=== PATIENT | male | born 1970 | race Caucasian/White ===

== ENCOUNTER → 2018-04-20 | Outpatient (CLI) | payer BC, OTHER ==
--- NOTE | 2018-04-20 15:35 | Diagnostic Imaging Report ---
INDICATION: Low back pain radiating to the right leg. TIME OF EXAM: 3:08 p.m. FINDINGS: Three views of the lumbar spine show normal curvature and alignment. Vertebral body heights are maintained. No acute compression fracture is seen. Multilevel degenerative disc disease is seen with variable disc space narrowing and marginal spurring. IMPRESSION: Lumbar spondylosis. No acute bony abnormality is detected. Dictated by: Dictated on workstation # [id number]
--- NOTE | 2018-04-20 15:37 | Diagnostic Imaging Report ---
INDICATION: Low back pain. TIME OF EXAM: 03:10 p.m. FINDINGS: Multiple views of the pelvis and bilateral hips were obtained. Femoroacetabular alignment is normal bilaterally. The joint spaces are well maintained. Both femoral heads and necks appear to be intact. No fractures are seen. The rami are intact. SI joints and symphyses are non-widened. IMPRESSION: No acute bony abnormality is detected. Dictated by: Dictated on workstation # [id number]
== END ==
LOC: RAD 14:09
PROVIDERS: ATTEND Chiropractor
DX: M47.816 Spondylosis without myelopathy or radiculopathy, lumbar region (principal)
CPT/HCPCS: 72100; 73523

== ENCOUNTER 2021-05-06 04:51 | Emergency (ER) | payer OTHER ==
[~2021-05-06] VITALS: Ht 180 cm; Wt 104.0 kg
--- NOTE | 2021-05-06 05:13 | ED Back Pain ---
General Chief Complaint: Abdominal/GI Problems Stated Complaint: LEFT SIDE PX,POSS KIDNEY STONES Source of Information: Patient Exam Limitations: No Limitations History of Present Illness Date Seen by Provider: May 06, 2021 Time Seen by Provider: 04:58 Initial Comments Patient to the ER by private conveyance with his significant other chief complaint that yesterday he started having some left lower flank and back pain radiating around to his left groin. He says it is consistent with his 3 previous kidney stones they are all on the right side. He said to have lithotripsy and retrieval. Dr. Hernandez, urology at [place], [place] is his urologist. He does not follow with a primary care doctor. He did take some ibuprofen just before coming in. No blood or painful urination. He had nausea yesterday but none today. He went to the ER at [facility] and and after 3 or 4 hours his symptoms were improving so he went home. Allergies and Home Medications Allergies Coded Allergies: Penicillins (Unverified Allergy, Unknown, hives, 05/06/21) Patient Home Medication List Home Medication List Reviewed: Yes Cephalexin (Cephalexin) 500 Mg Tablet, 500 MG PO BID Prescribed by: LAYA AMATO on 05/06/21 0544 Hydrocodone/Acetaminophen (Hydrocodone-Acetamin 5-325 mg) 1 Each Tablet, 1-2 TAB PO Q6H PRN for PAIN-MODERATE (5-7) Prescribed by: LAYA AMATO on 05/06/21 0545 Ondansetron (Ondansetron Odt) 4 Mg Tab.rapdis, 4 MG PO Q6H PRN for NAUSEA/VOMITING Prescribed by: LAYA AMATO on 05/06/21 0544 Tamsulosin HCl (Flomax) 0.4 Mg Cap, 0.4 MG PO DAILY Prescribed by: LAYA AMATO on 05/06/21 0544 Review of Systems Constitutional: No chills, No diaphoresis EENTM: No ear discharge, No hearing loss Respiratory: No cough, No short of breath Cardiovascular: no symptoms reported Gastrointestinal: see HPI Genitourinary: see HPI Musculoskeletal: see HPI, back pain All Other Systems Reviewed Negative Unless Noted: Yes Past Inzeepa-Pouzkw-Pjujwh Hx Patient Social History Tobacco Use?: No Use of E-Cig and/or Vaping dev: No Substance use?: No Physical Exam Vital Signs Vital Signs - First Documented 05/06/21 05:07 Temp 36.0 Pulse 79 Resp 16 B/P (MAP) 177/122 (140) Pulse Ox 99 O2 Delivery Room Air Capillary Refill : Height, Weight, BMI Height: '" Weight: lbs. oz. kg; BMI Method: General Appearance: WD/WN, Moderate Distress HEENT: PERRL/EOMI, Moist Mucous Membranes Neck: Full Range of Motion, Normal Inspection Cardiovascular: Regular Rate, Rhythm, No Edema, Normal Peripheral Pulses Respiratory: No Accessory Muscle Use, No Respiratory Distress Gastrointestinal: Non Tender, Soft Back: Normal Inspection, CVA Tenderness (L) Neurologic/Psychiatric: Alert, Oriented x3 Progress/Results/Core Measures Results/Orders Lab Results Laboratory Tests Test 05/06/21 05:10 Range/Units Urine Color YELLOW Urine Clarity SL CLOUDY Urine pH 5.5 5-9 Urine Specific [place] >=1.030 1.016-1.022 Urine Protein TRACE H NEGATIVE Urine Glucose (UA) NEGATIVE NEGATIVE Urine Ketones NEGATIVE NEGATIVE Urine Nitrite NEGATIVE NEGATIVE Urine Bilirubin NEGATIVE NEGATIVE Urine Urobilinogen 0.2 < = 1.0 MG/DL Urine Leukocyte Esterase NEGATIVE NEGATIVE Urine RBC (Auto) 3+ H NEGATIVE Urine RBC 50-100 H /HPF Urine WBC 2-5 /HPF Urine Squamous Epithelial Cells 0-2 /HPF Urine Crystals NONE /LPF Urine Bacteria TRACE /HPF Urine Casts NONE /LPF Urine Mucus NEGATIVE /LPF Urine Culture Indicated NO My Orders Orders - LAYA AMATO Ua Culture If Indicated (05/06/21 04:59) Ketorolac Injection (Toradol Injection) (05/06/21 05:15) Ct Abd/Pelvis Wo(Kidney Stone) (05/06/21 05:06) Abdomen/Kub 1view (05/06/21 05:06) Rx-Hydrocodone/Apap 5-325 Mg (Rx-Vicodin (05/06/21 05:45) Medications Given in ED Current Medications Medications Dose Ordered Sig/Bryant Route Start Time Stop Time Status Last Admin Dose Admin Acetaminophen/ Hydrocodone Bitart 1 ea Q6H PRN PO 05/06/21 05:45 05/06/21 05:47 1 EA Ketorolac Tromethamine 60 mg ONCE ONCE IM 05/06/21 05:15 05/06/21 05:16 DC 05/06/21 05:16 60 MG Vital Signs/I&O 05/06/21 05:07 Temp 36.0 Pulse 79 Resp 16 B/P (MAP) 177/122 (140) Pulse Ox 99 O2 Delivery Room Air Progress Progress Note : Time: 05:13 Progress Note Toradol, CT and urinalysis 1 view plain film. Diagnostic Imaging Diagonstic Imaging: Xray Plain Films/CT/US/NM/MRI: abdomen Comments NAME: BLAYNE MAHAJAN MED REC#: [id number] PT STATUS: REG ER : 1970 PHYSICIAN: LAYA AMATO MD ADMIT DATE: 05/06/21/ER Draft Date of Exam:05/06/21 ABDOMEN/KUB 1VIEW INDICATION: Left flank pain and hematuria. History of stones. Cholecystectomy. EXAMINATION: Abdomen 05/06/2021 FINDINGS: Two views of the abdomen. There are clips in the right upper quadrant consistent with previous cholecystectomy. There is no free air. There is scattered air and stool throughout the colon to the rectosigmoid. No dilated loops of bowel. There is a hyperdensity in the left mid abdomen adjacent to the L2-L3 level consistent with a stone seen in the proximal ureter on recent CT. IMPRESSION: 1. Small stone in the proximal left ureter as noted above. 2. Nonobstructive bowel gas pattern. Dictated on workstation # [id number] Dict: 05/06/21 0539 Trans: 05/06/21 0542 COUNTS INCLUDE 234 BEDS AT THE [facility] [id number] Interpreted by: SASHA STONER MD Electronically signed by: Reviewed: Reviewed by Tx Diagonstic Imaging: CT Plain Films/CT/US/NM/MRI: abdomen, pelvis Comments NAME: BLAYNE MAHAJAN MED REC#: [id number] PT STATUS: REG ER : 1970 PHYSICIAN: LAYA AMATO MD ADMIT DATE: 05/06/21/ER Draft Date of Exam:05/06/21 CT ABD/PELVIS WO(KIDNEY STONE) PROCEDURE: CT urinary tract, rule out kidney stone. TECHNIQUE: Multiple contiguous axial images were obtained through the abdomen and pelvis without the use of intravenous contrast. Auto Exposure Controls were utilized during the CT exam to meet ALARA standards for radiation dose reduction. INDICATION: Left flank pain and hematuria. History of stones. History of cholecystectomy. EXAMINATION: CT abdomen and pelvis without contrast 05/06/2021 FINDINGS: The visualized lung base is clear. The nonopacified abdominal viscera demonstrates no acute abnormalities within the liver or spleen. There is evidence of previous cholecystectomy. The pancreas and adrenal glands appear unremarkable. There is a small hypodensity within the superior pole of the left kidney somewhat small for characterization, likely a cyst. There is suggestion of punctate stones in the left kidney. There is a 2 to 3 mm stone in the proximal left ureter with secondary moderate left hydroureteronephrosis. There are no ureteral stones on the right. The appendix is unremarkable. There is no ascites or free air. There is no obstructive process. There are bilateral fat-containing inguinal hernias. There is no adenopathy. There is no acute osseous abnormality. IMPRESSION: 1. A 2 to 3 mm stone in the proximal left ureter with secondary moderate left hydroureteronephrosis. Punctate nonobstructive stones in left kidney also noted. Otherwise incidental findings as above. Dictated on workstation # [id number] Dict: 05/06/21 0526 Trans: 05/06/21 0533 COUNTS INCLUDE 234 BEDS AT THE [facility] [id number] Interpreted by: SASHA STONER MD Electronically signed by: Reviewed: Reviewed by Me Departure Impression Primary Impression: Ureteral calculus, left Disposition: 01 HOME, SELF-CARE Condition: Stable Departure-Patient Inst. Decision time for Depature: 05:45 Referrals: NO,LOCAL PHYSICIAN (PCP) Primary Care Physician BRENDA ELLER MD Patient Instructions: Kidney Stones (DC) Add. Discharge Instructions: Drink lots of fluids. Strain your urine to see if you can collect the stone. Symptoms usually tate 1 to 2 days after the stone is passed. Ibuprofen 800 mg every 8 hours necessary for pain. Hydrocodone 1-2 tablets every 6 hours as necessary for pain. Follow-up with urology by calling for an appointment in the morning. Zofran 1 tablet every 6 hours as necessary for nausea or vomiting. Keflex 1 capsule twice a day for urinary tract infection. Flomax 1 capsule every day until the stone passes. Return to the ER for intractable pain or other worrisome symptoms. All discharge instructions reviewed with patient and/or family. Voiced understanding. Scripts Cephalexin (Cephalexin) 500 Mg Tablet 500 MG PO BID for 7 Days, #14 TAB 0 Refills Prov: LAYA AMATO 05/06/21 Ondansetron (Ondansetron Odt) 4 Mg Tab.rapdis 4 MG PO Q6H PRN for NAUSEA/VOMITING, #8 TAB 0 Refills Prov: LAYA AMATO 05/06/21 Tamsulosin HCl (Flomax) 0.4 Mg Cap 0.4 MG PO DAILY for 7 Days, #7 CAP 0 Refills Prov: LAYA AMATO 05/06/21 Hydrocodone/Acetaminophen (Hydrocodone-Acetamin 5-325 mg) 1 Each Tablet 1-2 TAB PO Q6H PRN for PAIN-MODERATE (5-7) for 3 Days, #15 TAB 0 Refills Prov: LAYA AMATO 05/06/21 Copy Copies To 1: BRENDA ELLER MD, TITUS J May 06, 2021 05:13
[2021-05-06] MEDS ORDERED: KETOROLAC 60 MG/2 ML VIAL IM ONE (05:15)
[2021-05-06 05:18] LABS: BILIRUBIN,URINE NEGATIVE (NEGATIVE); CLARITY,URINE SL CLOUDY; COLOR,URINE YELLOW; GLUCOSE, URINE (UA) NEGATIVE (NEGATIVE); KETONES,URINE NEGATIVE (NEGATIVE); LEUKOCYTE ESTERASE ,URINE NEGATIVE (NEGATIVE); NITRITE,URINE NEGATIVE (NEGATIVE); PH,URINE 5.5 (5-9); PROTEIN,URINE TRACE (NEGATIVE)
--- NOTE | 2021-05-06 05:35 | Diagnostic Imaging Report ---
PROCEDURE: CT urinary tract, rule out kidney stone. TECHNIQUE: Multiple contiguous axial images were obtained through the abdomen and pelvis without the use of intravenous contrast. Auto Exposure Controls were utilized during the CT exam to meet ALARA standards for radiation dose reduction. INDICATION: Left flank pain and hematuria. History of stones. History of cholecystectomy. EXAMINATION: CT abdomen and pelvis without contrast 05/06/2021 FINDINGS: The visualized lung base is clear. The nonopacified abdominal viscera demonstrates no acute abnormalities within the liver or spleen. There is evidence of previous cholecystectomy. The pancreas and adrenal glands appear unremarkable. There is a small hypodensity within the superior pole of the left kidney somewhat small for characterization, likely a cyst. There is suggestion of punctate stones in the left kidney. There is a 2 to 3 mm stone in the proximal left ureter with secondary moderate left hydroureteronephrosis. There are no ureteral stones on the right. The appendix is unremarkable. There is no ascites or free air. There is no obstructive process. There are bilateral fat-containing inguinal hernias. There is no adenopathy. There is no acute osseous abnormality. IMPRESSION: 1. A 2 to 3 mm stone in the proximal left ureter with secondary moderate left hydroureteronephrosis. Punctate nonobstructive stones in left kidney also noted. Otherwise incidental findings as above. Dictated by: Dictated on workstation # [id number]
--- NOTE | 2021-05-06 05:43 | Diagnostic Imaging Report ---
INDICATION: Left flank pain and hematuria. History of stones. Cholecystectomy. EXAMINATION: Abdomen 05/06/2021 FINDINGS: Two views of the abdomen. There are clips in the right upper quadrant consistent with previous cholecystectomy. There is no free air. There is scattered air and stool throughout the colon to the rectosigmoid. No dilated loops of bowel. There is a hyperdensity in the left mid abdomen adjacent to the L2-L3 level consistent with a stone seen in the proximal ureter on recent CT. IMPRESSION: 1. Small stone in the proximal left ureter as noted above. 2. Nonobstructive bowel gas pattern. Dictated by: Dictated on workstation # [id number]
[2021-05-06] MEDS ORDERED: TMSL.4C PO (05:44)
[2021-05-06] MEDS ORDERED: CEPH500T PO (05:44)
[2021-05-06] MEDS ORDERED: ACHD5005 PO (05:44)
[2021-05-06] MEDS ORDERED: ONDA4TAB11 PO (05:44)
[2021-05-06 05:51] LABS: BACTERIA,URINE TRACE /HPF; RBC,URINE 50-100 /HPF; SQUAMOUS EPITHELIAL CELL,UR 0-2 /HPF
[2021-05-06 06:05] VITALS: BP 147/110
== END 2021-05-06 06:05 | disposition home or self-care (01) ==
LOC: EDUNIT# 04:51 → ER 04:56
DX: N13.2 Hydronephrosis with renal and ureteral calculous obstruction (principal)
CPT/HCPCS: 74018; 74176; 81000

== ENCOUNTER 2021-05-08 05:22 | Emergency (ER) | payer OTHER ==
[~2021-05-08 05:22] MED LIST: ACHD5005 PO; CEPH500T PO; ONDA4TAB11 PO; TMSL.4C PO
[2021-05-08 05:30] VITALS: BP 176/103
[2021-05-08 05:45] LABS: BASOPHILS % (AUTO) 1 % (0-10); EOSINOPHILS % (AUTO) 0 % (0-10); HEMATOCRIT 45 % (40-54); HEMOGLOBIN 14.8 g/dL (13.3-17.7); LYMPHOCYTES # (AUTO) 1.7 10^3/uL (1.0-4.0); LYMPHOCYTES % (AUTO) 19 % (12-44); MEAN CORPUSCULAR HEMOGLOBIN 29 pg (25-34); MEAN CORPUSCULAR HGB CONC 33 g/dL (32-36); MEAN CORPUSCULAR VOLUME 89 fL (80-99); MEAN PLATELET VOLUME 9.7 fL (9.0-12.2); MONOCYTES # (AUTO) 0.7 10^3/uL (0.0-1.0); MONOCYTES % (AUTO) 8 % (0-12); NEUTROPHILS # (AUTO) 6.2 10^3/uL (1.8-7.8); NEUTROPHILS % (AUTO) 72 % (42-75); PLATELET COUNT 247 10^3/uL (130-400); WHITE BLOOD COUNT 8.6 10^3/uL (4.3-11.0)
[2021-05-08] MEDS ORDERED: LACTATED RINGERS 1,000 ML IV ONE ×2 (05:45→06:30)
[2021-05-08] MEDS ORDERED: ONDANSETRON 4 MG/2 ML (SDV) Z0FRAN IVP ONE (05:45)
[2021-05-08] MEDS ORDERED: KETOROLAC 30 MG/ML VIAL IVP ONE (05:45)
--- NOTE | 2021-05-08 05:48 | ED GU-Male ---
General Chief Complaint: Abdominal/GI Problems Stated Complaint: KIDNEY PAIN Nursing Triage Note: patient complaint of left sided flank pain, states started monday. worsen over last two hours. hx of kidney stone. Source: patient History of Present Illness Date Seen by Provider: May 08, 2021 Time Seen by Provider: 05:45 Initial Comments PT ARRIVES VIA POV FROM HOME PT SEEN HERE ON Monday05/06/21 FOR LEFT KIDNEY STONE--2-3 MM IN SIZE PAIN BEGAN ON MONDAY PT WAS SENT HOME WITH RX'S FOR HYDROCODONE, ZOFRAN, FLOMAX, KEFLEX PAIN HAS INCREASED IN THE LAST 2 HOURS--WOKE HIM UP AT 0300, TOOK 1 HYDROCODONE AT THAT TIME WITHOUT RELIEF C/O NAUSEA, NO VOMITING URINATING OK NO FEVER HAS HISTORY OF KIDNEY STONES, AND HAS HAD TO HAVE ONE REMOVED--SEEN /TREATED IN [place] AT THAT TIME, ABOUT 15 YEARS AGO. PCP: NONE--MOVED HERE 3-4 YEARS AGO FROM [place], AND HAS NOT SEEN DR IN THAT TIME, UNTIL THIS WEEK Allergies and Home Medications Allergies Coded Allergies: Penicillins (Unverified Allergy, Unknown, hives, 05/06/21) Patient Home Medication List Home Medication List Reviewed: Yes Cephalexin (Cephalexin) 500 Mg Tablet, 500 MG PO BID Prescribed by: LAYA AMATO on 05/06/2144 Hydrocodone/Acetaminophen (Hydrocodone-Acetamin 5-325 mg) 1 Each Tablet, 1-2 TAB PO Q6H PRN for PAIN-MODERATE (5-7) Prescribed by: LAYA AMATO on 05/06/21 0545 Ketorolac Tromethamine (Ketorolac Tromethamine) 10 Mg Tablet, 10 MG PO Q6H Prescribed by: FERN WILLIAM on 05/08/2128 Ondansetron (Ondansetron Odt) 4 Mg Tab.rapdis, 4 MG PO Q6H PRN for NAUSEA/VOMITING Prescribed by: LAYA AMATO on 05/06/2144 Oxycodone HCl/Acetaminophen (Oxycodone-Acetaminophen 5-325) 1 Each Tablet, 1-2 EACH PO Q4H PRN for PAIN-MODERATE Prescribed by: FERN WILLIAM on 05/08/21627 Tamsulosin HCl (Flomax) 0.4 Mg Cap, 0.4 MG PO DAILY Prescribed by: LAYA AMATO on 05/06/21 0544 Review of Systems Review of Systems Constitutional: no symptoms reported; No fever Gastrointestinal: see HPI, abdominal pain, nausea Genitourinary: see HPI, flank pain Musculoskeletal: see HPI, back pain Past Muxymbo-Jwswma-Omodbs Hx Immunizations Up To Date First/Initial COVID19 Vaccinat: 2020 Second COVID19 Vaccination Andi: 2020 Third COVID19 Vaccination Date: 2020 Past Medical History Surgery/Hospitalization HX: KIDNEY STONE REMOVAL WITH URETERAL STENT PLACEMENT/STENT REMOVED A WEEK LATER--ABOUT 15 YEARS AGO IN [place] CHOLECYSTECTOMY Surgeries: Yes Gallbladder, Renal Respiratory: No Cardiac: No Neurological: No Genitourinary: Yes Kidney Stones Gastrointestinal: Yes (S/P CHOLECYSTECTOMY) Gall Bladder Disease Musculoskeletal: No Endocrine: No HEENT: No Cancer: No Psychosocial: No Integumentary: No Blood Disorders: No Physical Exam Vital Signs Vital Signs - First Documented 05/08/21 05:30 Temp 35.5 Pulse 81 Resp 20 B/P (MAP) 176/103 (127) Pulse Ox 97 O2 Delivery Room Air Capillary Refill : Less Than 3 Seconds Height, Weight, BMI Height: '" Weight: lbs. oz. kg; 32.00 BMI Method: General Appearance: WD/WN, other (STANDING UP, MOANING) Cardiovascular: regular rate, rhythm, no murmur Respiratory: normal breath sounds, no respiratory distress, no accessory muscle use Gastrointestinal: soft, tenderness (LEFT MID AND LOWER ABDOMEN/LEFT FLANK) Back: CVA tenderness (L) Extremities: normal inspection Neurologic/Psychiatric: no motor/sensory deficits, alert, normal mood/affect, oriented x 3 Skin: normal color, warm/dry; No rash Progress/Results/Core Measures Suspected Sepsis SIRS Temperature: Pulse: 81 Respiratory Rate: 20 Laboratory Tests 05/08/21 05:37: White Blood Count 8.6 Blood Pressure 176 /103 Mean: 127 Laboratory Tests 05/08/21 05:37: Creatinine 1.19, Platelet Count 247, Total Bilirubin 1.2H Results/Orders Lab Results Laboratory Tests Test 05/08/21 05:37 05/08/21 06:35 Range/Units White Blood Count 8.6 4.3-11.0 10^3/uL Red Blood Count 5.08 4.30-5.52 10^6/uL Hemoglobin 14.8 13.3-17.7 g/dL Hematocrit 45 40-54 % Mean Corpuscular Volume 89 80-99 fL Mean Corpuscular Hemoglobin 29 25-34 pg Mean Corpuscular Hemoglobin Concent 33 32-36 g/dL Red Cell Distribution Width 12.6 10.0-14.5 % Platelet Count 247 130-400 10^3/uL Mean Platelet Volume 9.7 9.0-12.2 fL Immature Granulocyte % (Auto) 1 % Neutrophils (%) (Auto) 72 42-75 % Lymphocytes (%) (Auto) 19 12-44 % Monocytes (%) (Auto) 8 0-12 % Eosinophils (%) (Auto) 0 0-10 % Basophils (%) (Auto) 1 0-10 % Neutrophils # (Auto) 6.2 1.8-7.8 10^3/uL Lymphocytes # (Auto) 1.7 1.0-4.0 10^3/uL Monocytes # (Auto) 0.7 0.0-1.0 10^3/uL Eosinophils # (Auto) 0.0 0.0-0.3 10^3/uL Basophils # (Auto) 0.0 0.0-0.1 10^3/uL Immature Granulocyte # (Auto) 0.0 0.0-0.1 10^3/uL Sodium Level 139 135-145 MMOL/L Potassium Level 4.1 3.6-5.0 MMOL/L Chloride Level 106 98-107 MMOL/L Carbon Dioxide Level 19 L 21-32 MMOL/L Anion Gap 14 5-14 MMOL/L Blood Urea Nitrogen 17 7-18 MG/DL Creatinine 1.19 0.60-1.30 MG/DL Estimat Glomerular Filtration Rate 65 BUN/Creatinine Ratio 14 Glucose Level 117 H 70-105 MG/DL Calcium Level 9.0 8.5-10.1 MG/DL Corrected Calcium 8.9 8.5-10.1 MG/DL Total Bilirubin 1.2 H 0.1-1.0 MG/DL Aspartate Amino Transf (AST/SGOT) 23 5-34 U/L Alanine Aminotransferase (ALT/SGPT) 30 0-55 U/L Alkaline Phosphatase 84 40-136 U/L C-Reactive Protein High Sensitivity 2.35 H 0.00-0.50 MG/DL Total Protein 7.4 6.4-8.2 GM/DL Albumin 4.1 3.2-4.5 GM/DL Urine Color YELLOW Urine Clarity CLEAR Urine pH 6.0 5-9 Urine Specific [place] >=1.030 1.016-1.022 Urine Protein TRACE H NEGATIVE Urine Glucose (UA) NEGATIVE NEGATIVE Urine Ketones 1+ H NEGATIVE Urine Nitrite NEGATIVE NEGATIVE Urine Bilirubin 1+ H NEGATIVE Urine Urobilinogen 1.0 < = 1.0 MG/DL Urine Leukocyte Esterase NEGATIVE NEGATIVE Urine RBC (Auto) 3+ H NEGATIVE Urine RBC 10-25 H /HPF Urine WBC RARE /HPF Urine Squamous Epithelial Cells 2-5 /HPF Urine Crystals NONE /LPF Urine Bacteria TRACE /HPF Urine Casts NONE /LPF Urine Mucus NEGATIVE /LPF Urine Culture Indicated CULTURE PENDING My Orders Orders - FERN WILLIAM DO Tamsulosin Capsule (Flomax Capsule) (05/08/21 06:00) Ed Iv/Invasive Line Start (05/08/21 06:20) Lactated Ringers (Lr 1000 Ml Iv Solution (05/08/21 06:30) Fentanyl Inj (Sublimaze Injection) (05/08/21 06:30) Fentanyl Inj (Sublimaze Injection) (05/08/21 07:15) Oxycodone/Acet 10/325mg Tablet (Percocet (05/08/21 07:30) Fentanyl Inj (Sublimaze Injection) (05/08/21 08:00) Rx-Oxycodone/Apap 5-325 Mg (Rx-Percocet (05/08/21 08:00) Medications Given in ED Current Medications Medications Dose Ordered Sig/Bryant Route Start Time Stop Time Status Last Admin Dose Admin Fentanyl Citrate 50 mcg ONCE ONCE IVP 05/08/21 06:30 05/08/21 06:31 DC 05/08/21 06:32 50 MCG Fentanyl Citrate 50 mcg ONCE ONCE IVP 05/08/21 07:15 05/08/21 07:16 DC 05/08/21 07:27 50 MCG Fentanyl Citrate 50 mcg ONCE ONCE IVP 05/08/21 08:00 05/08/21 08:01 DC 05/08/21 08:00 50 MCG Ketorolac Tromethamine 30 mg ONCE ONCE IVP 05/08/21 05:45 05/08/21 05:46 DC 05/08/21 05:43 30 MG Lactated Ringer's 1,000 ml @ 0 mls/hr Q0M ONCE IV 05/08/21 05:45 05/08/21 05:46 DC 05/08/21 05:43 1,000 MLS/HR Lactated Ringer's 1,000 ml @ 0 mls/hr Q0M ONCE IV 05/08/21 06:30 05/08/21 06:31 DC 05/08/21 06:31 0 MLS/HR Ondansetron HCl 8 mg ONCE ONCE IVP 05/08/21 05:45 05/08/21 05:46 DC 05/08/21 05:43 8 MG Oxycodone/ Acetaminophen 1 ea Q4H PRN PO 05/08/21 08:00 05/08/21 08:55 DC 05/08/21 08:55 1 EA Oxycodone/ Acetaminophen 1 tab ONCE ONCE PO 05/08/21 07:30 05/08/21 07:31 DC 05/08/21 07:33 1 TAB Vital Signs/I&O 05/08/21 05:30 Temp 35.5 Pulse 81 Resp 20 B/P (MAP) 176/103 (127) Pulse Ox 97 O2 Delivery Room Air Capillary Refill : Less Than 3 Seconds Blood Pressure Mean: 127 Progress Note : Progress Note GIVEN IV FLUIDS, TORADOL AND ZOFRAN WITH COMPLETE RESOLUTION OF SYMPTOMS 1824--PAIN HAS RETURNED, PT PACING AND MOANING--GIVEN FENTANYL AND ORAL OXYCODONE WITH RELIEF OF SYMPTOMS Departure Impression Primary Impression: Ureteral calculus, left Disposition: 01 HOME, SELF-CARE Condition: Improved Departure-Patient Inst. Decision time for Depature: 07:10 Referrals: NO,LOCAL PHYSICIAN (PCP) Primary Care Physician BRENDA ELLER MD Patient Instructions: Kidney Stones (DC) Add. Discharge Instructions: STRAIN ALL URINE CONTINUE ANTIBIOTIC ( CEPHALEXIN ) PRESCRIBED, CONTINUE ZOFRAN NEEDED FOR NAUSEA, CONTINUE FLOMAX DAILY. STOP HYDROCODONE, START OXYCODONE START TORADOL EVERY 6 HOURS FOR PAIN FOLLOW UP WITH DR. ELLER ON MONDAY FOR FURTHER CARE, RETURN TO ER IF WORSE All discharge instructions reviewed with patient and/or family. Voiced understanding. Scripts Oxycodone HCl/Acetaminophen (Oxycodone-Acetaminophen 5-325) 1 Each Tablet 1-2 EACH PO Q4H PRN for PAIN-MODERATE MDD 6 for 3 Days, #20 TAB 0 Refills Prov: FERN WILLIAM DO 05/08/21 Ketorolac Tromethamine (Ketorolac Tromethamine) 10 Mg Tablet 10 MG PO Q6H for Pain, #15 TAB Prov: FERN WILLIAM DO 05/08/21 FERN WILLIAM DO May 08, 2021 05:48
[2021-05-08 05:54] LABS: ALBUMIN 4.1 GM/DL (3.2-4.5); POTASSIUM 4.1 MMOL/L (3.6-5.0)
[2021-05-08 05:56] LABS: TOTAL PROTEIN 7.4 GM/DL (6.4-8.2)
[2021-05-08 05:58] LABS: BILIRUBIN,TOTAL 1.2 MG/DL (0.1-1.0)
[2021-05-08 06:00] LABS: CREATININE SERUM 1.19 MG/DL (0.60-1.30)
[2021-05-08] MEDS ORDERED: TAMSULOSIN 0.4 MG (FLOMAX) CAP PO SCH (06:00)
[2021-05-08] MEDS ORDERED: OXYC1TAB11 PO (06:28)
[2021-05-08] MEDS ORDERED: KETO10TA PO (06:28)
[2021-05-08] MEDS ORDERED: fentaNYL INJ 100 MCG/2 ML AMP IVP ONE ×3 (06:30→08:00)
[2021-05-08 06:43] LABS: CLARITY,URINE CLEAR; COLOR,URINE YELLOW; GLUCOSE, URINE (UA) NEGATIVE (NEGATIVE); KETONES,URINE 1+ (NEGATIVE); LEUKOCYTE ESTERASE ,URINE NEGATIVE (NEGATIVE); NITRITE,URINE NEGATIVE (NEGATIVE); PROTEIN,URINE TRACE (NEGATIVE)
[2021-05-08 06:54] LABS: BACTERIA,URINE TRACE /HPF; BILIRUBIN,URINE 1+ (NEGATIVE); WBC,URINE RARE /HPF
[2021-05-08] MEDS ORDERED: oxyCODONE/APAP 10/325MG (PERCOCET 10) TABLET PO ONE (07:30)
[2021-05-08] MEDS ORDERED: RX-OXYCODONE/APAP 5-325 MG #4 TAB PK PO PRN (08:00)
== END 2021-05-08 08:55 | disposition home or self-care (01) ==
LOC: EDUNIT# 05:22 → ER 05:25
DX: N20.0 Calculus of kidney (principal); Z88.0 Allergy status to penicillin; Z90.49 Acquired absence of other specified parts of digestive tract
CPT/HCPCS: 36415; 80053; 81000; 85025; 86141

== ENCOUNTER 2021-05-22 15:00 | Outpatient (RCR) | payer OTHER ==
[~2021-05-22 15:00] MED LIST changes: +KETO10TA PO; +OXYC1TAB11 PO
== END 2021-06-14 | disposition home or self-care (01) ==
LOC: LAB 15:00
PROVIDERS: ATTEND Urology
DX: N20.1 Calculus of ureter (principal)
CPT/HCPCS: 36415; 82140; 82340; 82507; 82570; 83735; 83945; 83986; 84105; 84133; 84300; 84392; 84560; 88300